=== PATIENT | male | born 1975 | race Caucasian/White ===

== ENCOUNTER 2020-05-16 09:24 | Emergency (ER) | payer OTHER | END 2020-05-16 10:35 | disposition home or self-care (01) | LOC: FER 09:24 | DX: S60.222A Contusion of left hand, initial encounter (principal); I10 Essential (primary) hypertension; Z88.5 Allergy status to narcotic agent; W22.8XXA Striking against or struck by other objects, initial encounter; Y92.009 Unspecified place in unspecified non-institutional (private) residence as the place of occurrence of the external cause | CPT/HCPCS: 73130 ==